=== PATIENT | male | born 1990 | race Caucasian/White ===

== ENCOUNTER 2016-09-29 17:32 | Emergency (ER) | payer SELFPAY ==
[~2016-09-29] VITALS: Ht 167.6 cm; Wt 72.7 kg
[~2016-09-29 17:32] MED LIST: INSULIN ISOPHANE SQ; NOCURR
[2016-09-29] MEDS ORDERED: METF500T4 PO (17:46)
[2016-09-29 17:57] LABS: GLUCOSE,POINT OF CARE 321 MG/DL (70-110)
[2016-09-29 18:30] LABS: BASOPHILS # (AUTO) 0.04 K/uL (0.00-0.20); BASOPHILS % (AUTO) 0.6 % (0.0-2.0); EOSINOPHILS # (AUTO) 1.32 K/uL (0.00-0.70); HEMATOCRIT 46.5 % (41-53); HEMOGLOBIN 15.6 g/dL (13.5-17.5); LYMPHOCYTES # (AUTO) 2.2 K/uL (1.0-4.8); LYMPHOCYTES % (AUTO) 30.2 % (22.0-44.0); MEAN CORPUSCULAR HEMOGLOBIN 30.9 pg (26.0-34.0); MEAN CORPUSCULAR HGB CONC 33.6 G/dL (31.0-37.0); MEAN CORPUSCULAR VOLUME 92 fL (80-100); MONOCYTES # (AUTO) 0.4 K/uL (0.1-1.0); MONOCYTES % (AUTO) 5.1 % (2.0-9.0); NEUTROPHILS # (AUTO) 3.3 K/uL (1.8-7.7); NEUTROPHILS % (AUTO) 45.6 % (40.0-70.0); PLATELET COUNT (AUTO) 192 K/uL (150-450); RED BLOOD CELL COUNT(AUTO) 5.06 MIL/uL (4.50-5.90); RED CELL DISTRIBUTION WIDTH 12.2 % (11.5-14.5); WHITE BLOOD COUNT (AUTO) 7.2 K/uL (4.5-11.0)
[2016-09-29 18:31] LABS: EOSINOPHILS % (AUTO) 18.44 % (1.0-6.0)
[2016-09-29 18:34] LABS: ANION GAP 7 mmol/L (8-16); CALCIUM, TOTAL 8.9 mg/dL (8.8-10.5); CARBON DIOXIDE 30 mmol/L (22-29); CHLORIDE 99 mmol/L (98-107); CREATININE 0.81 mg/dL (0.60-1.30); GLOMERULAR FILTR. RATE CALC > 60 mL/min (>60); POTASSIUM 4.5 mmol/L (3.5-5.1); SODIUM SERUM 136 mmol/L (136-145); UREA NITROGEN, BLOOD 15 mg/dL (7-18)
[2016-09-29 18:40] LABS: ALANINE AMINOTRANSFERASE 73 U/L (12-78); ALBUMIN 3.9 g/dL (3.4-5.0); BILIRUBIN,TOTAL 0.3 mg/dL (0.1-1.0); TOTAL PROTEIN, SERUM 7.3 g/dL (6.4-8.2)
[2016-09-29 18:42] LABS: APPEARANCE,URINE CLEAR (CLEAR); GLUCOSE, URINE (UA) >=1000 mg/dL (NEGATIVE); KETONES,URINE TRACE mg/dL (NEGATIVE); LEUKOCYTE ESTERASE ,URINE NEGATIVE (NEGATIVE); OCCULT BLOOD,URINE NEGATIVE (NEGATIVE); PROTEIN,URINE NEGATIVE (NEGATIVE)
[2016-09-29 18:44] LABS: RBC MORPHOLOGY COMMENT NORMAL RBC MORPH
[2016-09-29] MEDS ORDERED: SODIUM CHLORIDE 0.9% 1,000 ML IV ONE (18:45)
[2016-09-29 19:07] LABS: ADD UA MICROSCOPIC YES
[2016-09-29 19:08] LABS: B-TYPE NATRIURETIC PEPTIDE < 5 pg/mL (0-100)
[2016-09-29 19:10] LABS: RBC,URINE 0-2 /HPF (0-2); SQUAMOUS EPITHELIAL CELL,UR Few /LPF (None Seen)
[2016-09-29 19:17] LABS: CREATINE KINASE, TOTAL 67 U/L (39-308)
[2016-09-29 19:20] LABS: ASPARTATE AMINOTRANSFERASE 24 U/L (15-37)
[2016-09-29] MEDS ORDERED: INSULIN REGULAR, HUMAN 100 UNITS/ML SQ ONE (19:30)
[2016-09-29 19:38] LABS: INR 0.9 (0.9-1.1)
[2016-09-29 19:39] LABS: PROTHROMBIN TIME 9.1 SEC (9.4-11.6)
[2016-09-29 19:46] LABS: GLUCOSE,POINT OF CARE 284 MG/DL (70-110)
[2016-09-29 20:05] VITALS: BP 125/73
== END 2016-09-29 20:07 | disposition home or self-care (01) ==
LOC: EMS 17:34
DX: E11.65 Type 2 diabetes mellitus with hyperglycemia (principal); R11.0 Nausea; R19.7 Diarrhea, unspecified
CPT/HCPCS: 36415; 71010; 80053; 81001; 82550; 82962; 83880; 84484; 85025; 85610; 85730; 93005; 96360; 99285; J7030

== ENCOUNTER 2017-09-16 12:34 | Emergency (ER) | payer MEDICAID ==
[~2017-09-16] VITALS: Ht 170.2 cm; Wt 70.0 kg
[~2017-09-16 12:34] MED LIST changes: +INSLAN SQ; -INSULIN ISOPHANE SQ; +METF500T4 PO; -NOCURR
[2017-09-16 12:48] LABS: GLUCOSE,POINT OF CARE 369 MG/DL (70-110)
[2017-09-16] MEDS ORDERED: SODIUM CHLORIDE 0.9% 1,000 ML IV ONE ×2 (15:30)
[2017-09-16 15:58] LABS: HEMATOCRIT 44.3 % (41-53); HEMOGLOBIN 15.5 g/dL (13.5-17.5); LYMPHOCYTES # (AUTO) 2.4 K/uL (1.0-4.8); LYMPHOCYTES % (AUTO) 37.1 % (22.0-44.0); MEAN CORPUSCULAR HEMOGLOBIN 31.3 pg (26.0-34.0); MEAN CORPUSCULAR HGB CONC 34.9 G/dL (31.0-37.0); MEAN CORPUSCULAR VOLUME 90 fL (80-100); MONOCYTES # (AUTO) 0.5 K/uL (0.1-1.0); MONOCYTES % (AUTO) 6.9 % (2.0-9.0); NEUTROPHILS # (AUTO) 2.6 K/uL (1.8-7.7); NEUTROPHILS % (AUTO) 39.1 % (40.0-70.0); PLATELET COUNT (AUTO) 225 K/uL (150-450); RED BLOOD CELL COUNT(AUTO) 4.94 MIL/uL (4.50-5.90); RED CELL DISTRIBUTION WIDTH 12.6 % (11.5-14.5)
[2017-09-16 16:04] LABS: APPEARANCE,URINE CLEAR (CLEAR); BILIRUBIN,URINE NEGATIVE (NEGATIVE); GLUCOSE, URINE (UA) >=1000 mg/dL (NEGATIVE); KETONES,URINE NEGATIVE (NEGATIVE); LEUKOCYTE ESTERASE ,URINE NEGATIVE (NEGATIVE); NITRATE,URINE NEGATIVE (NEGATIVE); OCCULT BLOOD,URINE NEGATIVE (NEGATIVE); PROTEIN,URINE NEGATIVE (NEGATIVE)
[2017-09-16 16:15] LABS: EOSINOPHILS % (AUTO) 15.9 % (1.0-6.0)
[2017-09-16 16:16] LABS: ANION GAP 7 mmol/L (8-16); CALCIUM, TOTAL 9.1 mg/dL (8.8-10.5); CARBON DIOXIDE 31 mmol/L (22-29); CHLORIDE 99 mmol/L (98-107); CREATININE 0.83 mg/dL (0.60-1.30); GLOMERULAR FILTR. RATE CALC > 60 mL/min (>60); GLUCOSE,RANDOM 301 mg/dL (70-110); POTASSIUM 3.9 mmol/L (3.5-5.1); SODIUM SERUM 137 mmol/L (136-145); UREA NITROGEN, BLOOD 14 mg/dL (7-18)
[2017-09-16 16:21] LABS: ALANINE AMINOTRANSFERASE 72 U/L (12-78); ALBUMIN 3.7 g/dL (3.4-5.0); ALKALINE PHOSPHATASE 109 U/L (46-116); ASPARTATE AMINOTRANSFERASE 24 U/L (15-37); BILIRUBIN,TOTAL 0.5 mg/dL (0.1-1.0); TOTAL PROTEIN, SERUM 7.5 g/dL (6.4-8.2)
[2017-09-16 16:40] LABS: RBC,URINE 0-2 /HPF (0-2)
[2017-09-16 16:41] LABS: BACTERIA,URINE None Seen /HPF (None Seen); SQUAMOUS EPITHELIAL CELL,UR Rare /LPF (None Seen); WBC,URINE None Seen /HPF (0-5)
[2017-09-16 17:47] LABS: GLUCOSE,POINT OF CARE 288 MG/DL (70-110)
[2017-09-16] MEDS ORDERED: IBUPROFEN 600 MG TABLET PO ONE (18:15)
[2017-09-16 19:58] LABS: GLUCOSE,POINT OF CARE 228 MG/DL (70-110)
[2017-09-16] MEDS ORDERED: FLUCONAZOLE 150 MG TABLET PO ONE (20:00)
[2017-09-16 20:18] VITALS: BP 119/69
== END 2017-09-16 20:19 | disposition home or self-care (01) ==
LOC: EMS 12:35
DX: E11.9 Type 2 diabetes mellitus without complications (principal); N47.1 Phimosis; R19.7 Diarrhea, unspecified; J45.909 Unspecified asthma, uncomplicated
CPT/HCPCS: 36415; 80053; 81001; 82010; 82962; 85025; 96360; 96361; 99285; J7030

== ENCOUNTER 2018-08-30 21:08 | Emergency (ER) | payer MEDICAID ==
[~2018-08-30] VITALS: Ht 162.6 cm; Wt 74.1 kg
[~2018-08-30 21:08] MED LIST changes: -INSLAN SQ; +METF-960 PO; -METF500T4 PO
[2018-08-30 21:44] LABS: GLUCOSE,POINT OF CARE 360 MG/DL (70-110)
[2018-08-30] MEDS ORDERED: ONDANSETRON HCL 4 MG/2 ML VIAL IVP ONE (22:15)
[2018-08-30] MEDS ORDERED: SODIUM CHLORIDE 0.9% 1,000 ML IV ONE ×2 (22:15→23:15)
[2018-08-30] MEDS ORDERED: FLUCONAZOLE 150 MG TABLET PO ONE (22:15)
[2018-08-30 22:31] LABS: HEMATOCRIT 44.8 % (41-53); HEMOGLOBIN 15.5 g/dL (13.5-17.5); LYMPHOCYTES # (AUTO) 2.2 K/uL (1.0-4.8); LYMPHOCYTES % (AUTO) 30.2 % (22.0-44.0); MEAN CORPUSCULAR HEMOGLOBIN 31.5 pg (26.0-34.0); MEAN CORPUSCULAR HGB CONC 34.5 G/dL (31.0-37.0); MEAN CORPUSCULAR VOLUME 91 fL (80-100); MONOCYTES # (AUTO) 0.5 K/uL (0.1-1.0); MONOCYTES % (AUTO) 6.2 % (2.0-9.0); NEUTROPHILS # (AUTO) 3.2 K/uL (1.8-7.7); NEUTROPHILS % (AUTO) 43.3 % (40.0-70.0); PLATELET COUNT (AUTO) 206 K/uL (150-450); RED BLOOD CELL COUNT(AUTO) 4.91 MIL/uL (4.50-5.90); RED CELL DISTRIBUTION WIDTH 12.9 % (11.5-14.5)
[2018-08-30 22:32] LABS: EOSINOPHILS % (AUTO) 19.3 % (1.0-6.0)
[2018-08-30 22:44] LABS: ACETONE,BLOOD NEGATIVE (NEGATIVE)
[2018-08-30] MEDS ORDERED: ALBUTEROL SULFATE 2.5 MG/0.5 ML NEB SOLUTION NEB ONE (22:45)
[2018-08-30] MEDS ORDERED: IPRATROPIUM BROMIDE 0.5 MG/2.5 ML NEB SOLUTION NEB ONE (22:45)
[2018-08-30 22:55] LABS: ALANINE AMINOTRANSFERASE 26 U/L (12-78); ALBUMIN 3.7 g/dL (3.4-5.0); ALKALINE PHOSPHATASE 102 U/L (46-116); ANION GAP 9 mmol/L (8-16); ASPARTATE AMINOTRANSFERASE 8 U/L (15-37); BILIRUBIN,TOTAL 0.4 mg/dL (0.1-1.0); CALCIUM, TOTAL 9.7 mg/dL (8.8-10.5); CARBON DIOXIDE 28 mmol/L (22-29); CHLORIDE 100 mmol/L (98-107); CREATININE 0.85 mg/dL (0.60-1.30); GLOMERULAR FILTR. RATE CALC > 60 mL/min (>60); LIPASE 131 U/L (73-393); POTASSIUM 3.7 mmol/L (3.5-5.1); SODIUM SERUM 137 mmol/L (136-145); THYROID STIMULATING HORMONE 3.14 uIU/mL (0.36-3.74); TOTAL PROTEIN, SERUM 7.3 g/dL (6.4-8.2); UREA NITROGEN, BLOOD 8 mg/dL (7-18)
[2018-08-30 22:58] LABS: GLUCOSE,RANDOM 412 mg/dL (70-110); LACTIC ACID 2.4 mmol/L (0.4-2.0)
[2018-08-30] MEDS ORDERED: KETOROLAC TROMETHAMINE 30 MG/ML VIAL IVP ONE (23:00)
[2018-08-30] MEDS ORDERED: INSULIN REGULAR, HUMAN 100 UNITS/ML IVP ONE (23:45)
[2018-08-30 23:49] LABS: ABG A-A DIFF O2 8.9 mmHg (10-20.0); ABG BASE EXCESS -5.1 mmol/L (-2.0-3.0); ABG CARBOXYHEMOGLOBIN 0.4 % (0.0-3.0); ABG HCO3 20.7 mmol/L (22.0-26.0); ABG OXYGEN CONTENT 18.8 mL/dL (15.0-23.0); ABG OXYGEN SATURATION 96.8 % (95.0-98.0); ABG OXYHEMOGLOBIN 96.4 % (94.0-100.0); ABG PCO2 38 mmHg (35-45); ABG PH 7.351 (7.350-7.450); ABG TOTAL HEMOGLOBIN 13.8 G/dL (12.0-18.0); O2 DEVICE,BLOOD GAS ROOM AIR (ROOM AIR); PO2, ARTERIAL BG 95.6 mmHg (80.0-100.0); SITE, BLOOD GAS RT BRACHIAL; SOURCE, BLOOD GAS ARTERIAL; TEMPERATURE, FAHRENHEIT, BG 98.6 FAHREN (96.0-98.6)
[2018-08-30 23:53] LABS: APPEARANCE,URINE CLEAR (CLEAR); BILIRUBIN,URINE NEGATIVE (NEGATIVE); GLUCOSE, URINE (UA) >=1000 mg/dL (NEGATIVE); KETONES,URINE NEGATIVE (NEGATIVE); LEUKOCYTE ESTERASE ,URINE NEGATIVE (NEGATIVE); NITRATE,URINE NEGATIVE (NEGATIVE); OCCULT BLOOD,URINE NEGATIVE (NEGATIVE); PROTEIN,URINE NEGATIVE (NEGATIVE); UROBILINOGEN,URINE 0.2 mg/dL (<=1.0)
[2018-08-31 00:11] LABS: BACTERIA,URINE Few /HPF (None Seen); RBC,URINE 0-2 /HPF (0-2); SQUAMOUS EPITHELIAL CELL,UR Moderate /LPF (None Seen)
[2018-08-31] MEDS ORDERED: SODIUM CHLORIDE 0.9% 1,000 ML IV ONE ×2 (00:30→02:15)
[2018-08-31 00:57] LABS: GLUCOSE,POINT OF CARE 386 MG/DL (70-110)
[2018-08-31 01:35] LABS: ANION GAP 11 mmol/L (8-16); CALCIUM, TOTAL 8.8 mg/dL (8.8-10.5); CARBON DIOXIDE 23 mmol/L (22-29); CHLORIDE 106 mmol/L (98-107); CREATININE 0.67 mg/dL (0.60-1.30); GLOMERULAR FILTR. RATE CALC > 60 mL/min (>60); GLUCOSE,RANDOM 231 mg/dL (70-110); POTASSIUM 3.2 mmol/L (3.5-5.1); SODIUM SERUM 140 mmol/L (136-145); UREA NITROGEN, BLOOD 7 mg/dL (7-18)
[2018-08-31 01:42] LABS: GLUCOSE,POINT OF CARE 206 MG/DL (70-110)
[2018-08-31] MEDS ORDERED: POTASSIUM CHLORIDE 20 MEQ ER TABLET PO ONE ×2 (01:45→05:00)
[2018-08-31 01:48] LABS: LACTIC ACID 2.3 mmol/L (0.4-2.0)
[2018-08-31] MEDS ORDERED: INSULIN REGULAR, HUMAN 100 UNITS/ML IVP ONE ×3 (02:00→03:45)
[2018-08-31 02:40] LABS: GLUCOSE,POINT OF CARE 214 MG/DL (70-110)
[2018-08-31 03:49] LABS: GLUCOSE,POINT OF CARE 215 MG/DL (70-110)
[2018-08-31 04:38] LABS: ANION GAP 10 mmol/L (8-16); CALCIUM, TOTAL 8.1 mg/dL (8.8-10.5); CARBON DIOXIDE 23 mmol/L (22-29); CHLORIDE 108 mmol/L (98-107); CREATININE 0.56 mg/dL (0.60-1.30); GLOMERULAR FILTR. RATE CALC > 60 mL/min (>60); GLUCOSE,RANDOM 176 mg/dL (70-110); POTASSIUM 3.4 mmol/L (3.5-5.1); SODIUM SERUM 141 mmol/L (136-145); UREA NITROGEN, BLOOD 8 mg/dL (7-18)
[2018-08-31 04:43] LABS: ALANINE AMINOTRANSFERASE 21 U/L (12-78); ALBUMIN 2.7 g/dL (3.4-5.0); ALKALINE PHOSPHATASE 87 U/L (46-116); ASPARTATE AMINOTRANSFERASE 12 U/L (15-37); BILIRUBIN,TOTAL 0.3 mg/dL (0.1-1.0); TOTAL PROTEIN, SERUM 5.3 g/dL (6.4-8.2)
[2018-08-31 04:46] LABS: LACTIC ACID 1.3 mmol/L (0.4-2.0)
[2018-08-31 05:00] LABS: GLUCOSE,POINT OF CARE 184 MG/DL (70-110)
[2018-08-31 05:05] VITALS: BP 108/69
== END 2018-08-31 05:41 | disposition home or self-care (01) ==
LOC: EMS 21:10
DX: E10.65 Type 1 diabetes mellitus with hyperglycemia (principal); E86.0 Dehydration; R19.7 Diarrhea, unspecified; Z79.84 Long term (current) use of oral hypoglycemic drugs
CPT/HCPCS: 36415; 36600; 71045; 80048; 80053; 81001; 82009; 82805; 82948; 82962; 83605; 83690; 83735; 84443; 84484; 85025; 93005; 96361; 96374; 96375; 96376; 99284; J1815; J1885; J2405; J7030 ×2

== ENCOUNTER 2019-09-23 15:31 | Emergency (ER) | payer MEDICAID ==
[~2019-09-23] VITALS: Ht 167.6 cm; Wt 67.3 kg
[2019-09-23] MEDS ORDERED: PROPARACAINE HCL 0.5% 15 ML OPHTHALMIC SOLUTION OU ONE (15:45)
[2019-09-23] MEDS ORDERED: FLUORESCEIN SODIUM 1 MG STRIP OU ONE (15:45)
[2019-09-23] MEDS ORDERED: SODIUM CHLORIDE 0.9% 1,000 ML, SODIUM CHLORIDE 0.9% 1,000 ML IV ONE (16:00)
[2019-09-23 16:19] VITALS: BP 107/75
[2019-09-23 16:34] LABS: BASOPHILS % (AUTO) 1.1 % (0.0-2.0); EOSINOPHILS % (AUTO) 15.7 % (1.0-6.0); HEMATOCRIT 41.6 % (41-53); HEMOGLOBIN 14.6 g/dL (13.5-17.5); LYMPHOCYTES # (AUTO) 2.1 K/uL (1.0-4.8); LYMPHOCYTES % (AUTO) 28.9 % (22.0-44.0); MEAN CORPUSCULAR HEMOGLOBIN 32.4 pg (26.0-34.0); MEAN CORPUSCULAR HGB CONC 35.2 G/dL (31.0-37.0); MEAN CORPUSCULAR VOLUME 92 fL (80-100); MONOCYTES # (AUTO) 0.5 K/uL (0.1-1.0); MONOCYTES % (AUTO) 6.8 % (2.0-9.0); NEUTROPHILS # (AUTO) 3.4 K/uL (1.8-7.7); NEUTROPHILS % (AUTO) 47.5 % (40.0-70.0); PLATELET COUNT (AUTO) 214 K/uL (150-450); RED BLOOD CELL COUNT(AUTO) 4.52 MIL/uL (4.50-5.90); RED CELL DISTRIBUTION WIDTH 12.4 % (11.5-14.5)
[2019-09-23 16:45] LABS: ALANINE AMINOTRANSFERASE 35 U/L (12-78); ALBUMIN 3.5 g/dL (3.4-5.0); ALKALINE PHOSPHATASE 116 U/L (46-116); ANION GAP 10 mmol/L (8-16); BILIRUBIN,TOTAL 0.3 mg/dL (0.1-1.0); CALCIUM, TOTAL 8.6 mg/dL (8.8-10.5); CARBON DIOXIDE 27 mmol/L (22-29); CHLORIDE 96 mmol/L (98-107); CREATININE 1.05 mg/dL (0.60-1.30); GLOMERULAR FILTR. RATE CALC > 60 mL/min (>60); SODIUM SERUM 133 mmol/L (136-145); TOTAL PROTEIN, SERUM 7.4 g/dL (6.4-8.2); UREA NITROGEN, BLOOD 11 mg/dL (7-18)
[2019-09-23] MEDS ORDERED: VANCOMYCIN HCL 1 GM/D5% WATER 200 ML IV ONE (16:45)
[2019-09-23] MEDS ORDERED: SODIUM CHLORIDE 0.9% 1,000 ML IV ONE (16:45)
[2019-09-23] MEDS ORDERED: CLINDAMYCIN 300 MG/D5% WATER 50 ML IV ONE (16:45)
[2019-09-23 16:54] LABS: GLUCOSE,RANDOM 511 mg/dL (70-110)
[2019-09-23 17:04] LABS: ASPARTATE AMINOTRANSFERASE 16 U/L (15-37); PLATELET MORPHOLOGY COMMENT LARGE PLTS PRESENT
[2019-09-23 17:09] LABS: APPEARANCE,URINE CLEAR (CLEAR); BILIRUBIN,URINE NEGATIVE (NEGATIVE); GLUCOSE, URINE (UA) >=1000 mg/dL (NEGATIVE); KETONES,URINE NEGATIVE (NEGATIVE); LEUKOCYTE ESTERASE ,URINE NEGATIVE (NEGATIVE); NITRATE,URINE NEGATIVE (NEGATIVE); OCCULT BLOOD,URINE NEGATIVE (NEGATIVE); PROTEIN,URINE NEGATIVE (NEGATIVE)
[2019-09-23] MEDS ORDERED: INSULIN REGULAR, HUMAN 100 UNITS/ML SQ ONE (17:15)
[2019-09-23 17:30] LABS: BACTERIA,URINE Rare /HPF (None Seen); RBC,URINE 0-2 /HPF (0-2); SQUAMOUS EPITHELIAL CELL,UR Few /LPF (None Seen); WBC,URINE 0-2 /HPF (0-5)
== END 2019-09-23 18:43 | disposition short-term general hospital (02) ==
LOC: EMS 15:32
DX: H44.001 Unspecified purulent endophthalmitis, right eye (principal); J45.909 Unspecified asthma, uncomplicated; E11.9 Type 2 diabetes mellitus without complications; Z79.84 Long term (current) use of oral hypoglycemic drugs
CPT/HCPCS: 36415; 80053; 81001; 82010; 82962; 85025; 87040; 96365; 96366; 96368; 96372; 99285; J1815; J3370; J3490; J7030